=== PATIENT | male | born 1960 | race Caucasian/White ===

== ENCOUNTER 2016-12-26 11:56 | Inpatient (IN) | payer OTHER ==
[~2016-12-26] VITALS: Ht 165.1 cm; Wt 73.0 kg
[~2016-12-26 11:56] MED LIST: PRA20 PO
[2016-12-26 12:00] VITALS: BP 141/85; PULSE 79; RESP 16; O2SAT 93
[2016-12-26] MEDS ORDERED: OMEP40CA36 PO (12:06)
--- NOTE | 2016-12-26 12:08 | ED.REPORT ---
HPI-NVD Date of Service Dec 26, 2016 ED Provider: Avis Marinelli History of Present Illness: nausea, decreased oral intake, vomiting, coughing, back pain with coughing. Given tamiflu started on Friday from walk in clinic, no flu swab. has had cold symptoms for 10 days. primary care is [facility]. needs note for work. dizzy. last urination 1 hour ago Nursing Notes Stated Complaint: HEADACHE,VOMITING 3 DAYS,POSS CRACKED LEFT RIB Chief Complaint: FLU/Cold Symptoms Nursing Notes Reviewed: Yes Allergies: Coded Allergies: niacin (Verified Adverse Reaction, Intermediate, FLUSHING, 12/26/16) Scheduled Omeprazole (Omeprazole) 40 Mg Capsule.dr 40 MG PO DAILY Pravastatin (Pravachol) 20 Mg Tab 20 MG PO HS General Time Seen by MD: 12:07 Chief Complaint Nausea, Vomiting Hx Obtained From: Patient Onset Occurred: More than a week ago... 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[employer], first shift Ambulatory Status Independent Review of Systems Basic Review of Systems Eyes: Vision NL, No discharge Hematologic: No bleeding, No bruising Psychiatric: Normal thought content Physical Exam Initial Vital Signs Vital Signs (First) Date Time Temp Pulse Resp B/P Pulse Ox O2 Delivery O2 Flow Rate FiO2 12/26/16 12:00 37.2 79 16 141/85 93 Room Air Initial VS: Reviewed, Vital signs normal Head / Eyes: Atraumatic, Normocephalic, PERRL ENT: Mucous membranes moist, Conjunctiva normal, No scleral icterus Neck: Supple, Non-tender, Full range of motion Respiratory: Breath sounds normal, Clear to auscultation, No respiratory distress Cardiovascular: Regular rate & rhythm, Heart sounds normal, Intact distal pulses Back: No CVA tenderness Lymphatic: No lymphadenopathy Extremities: Vascular intact, Neuro intact, No swelling, No tenderness Skin: Warm, Dry, No cyanosis Neurologic: Alert, Oriented, Nonfocal Psychiatric: Mood/affect normal, Behavior normal, Normal thought content General/Constitutional: Awake, Alert Distress / Hydration: Positive: Distress mild Abdomen: Atraumatic, Soft, Non-tender, McBurney's non-tender, No guarding, No rebound, BS normoactive ENT: Atraumatic, Airway patent, Mucous membranes moist, Pharynx NL Rales / Rhonchi: Positive: Rhonchi coarse L Cardiovascular: Heart rate NL, Regular rhythm, Heart sounds NL, No gallop Interpretation & Diagnostics Interpretation & Diagnostics: INDICATIONS: headache, vomiting, coughing, elevated white count TECHNIQUE: After the administration of oral and intravenous contrast, 5 mm thick sections acquired from the lung apices to the symphysis. 5 mm coronal and sagittal reformats were performed, with additional 7 mm coronal MIP reformats through the lungs. For radiation dose reduction, the following was used: automated exposure control, adjustment of mA and/or kV according to patient size. COMPARISON: [facility], CT, KUB - CT ([facility] 04/15/2015, 15:54. FINDINGS: Image quality: Excellent. CHEST: Lungs and pleura: There is confluent suprahilar consolidation in the left upper lobe extending to the apex with air bronchograms. Mild dependent atelectasis is demonstrated elsewhere in the lungs. No pleural effusions or pneumothorax. Central and peripheral airways appear patent and normal in caliber. Mediastinum: Heart size is normal. No pericardial effusion. Thoracic aorta and central pulmonary arteries are normal in size. There are a few mildly enlarged left mediastinal lymph nodes including in the aortopulmonary window node measuring up to 1.2 cm in short axis and a prevascular anterior mediastinal node measuring up to 0.9 cm. Esophagus is normal in caliber. There is a small hiatal hernia. Chest wall: No axillary or supraclavicular adenopathy by size criteria. Thyroid gland demonstrates no discrete nodules. ABDOMEN: Solid organs: There is heterogeneous attenuation of the liver redemonstrated with areas of confluent hypoattenuation likely representing heterogeneous fatty infiltration. The spleen is normal in size. The gallbladder appears within normal limits without calcified gallstones. Biliary system is non dilated. Pancreas enhances normally. No adrenal nodules. Kidneys demonstrate no hydronephrosis. There are a few small bilateral nonobstructing renal stones, measuring up to 5 mm on the left and 2 mm on the right. Peritoneum and bowel: Bowel loops demonstrate normal wall thickness and caliber. There is colonic diverticulosis without acute diverticulitis. No free fluid or air. Nodes and vessels: No retroperitoneal or mesenteric adenopathy by size criteria. Aorta and inferior vena cava are normal in size. Miscellaneous: No ventral hernias. PELVIS: Genitourinary: Bladder wall thickness is normal. There is nonspecific enlargement of the prostate. Miscellaneous: No inguinal hernias or adenopathy. Bones: No suspicious bony lesions. No vertebral body compression fractures. IMPRESSION: 1. Confluent left upper lobe consolidation with air bronchograms consistent with pneumonia given clinical history. 2. Mildly enlarged left mediastinal lymph nodes are nonspecific but likely reactive. 3. Small hiatal hernia. Dictated by: Barak Ziegler M.D. on 12/26/2016 at 15:06 Approved by: Barak Ziegler M.D. on 12/26/2016 at 15:14 Lab Results Interpretation Result Diagram: 12/26/16 1235 12/26/16 1235 Test 12/26/16 12:35 12/26/16 13:45 White Blood Count 29.8th/mm3 (3.8-10.1) Red Blood Count 4.57mil/mm3 (4.40-5.80) Hemoglobin 13.4g/dL (13.8-17.2) Hematocrit 39.6% (41.0-50.0) Mean Corpuscular Volume 86.7fL (81-100) Mean Corpuscular Hemoglobin 29.3pg (27.0-35.0) Mean Corpuscular Hemoglobin Concent 33.8% (32.0-37.0) Red Cell Distribution Width 12.4% (12.3-15.4) Platelet Count 202bil/L (150-400) Neutrophils (%) (Auto) 89.1% (40-74) Lymphocytes (%) (Auto) 2.9% (14-46) Monocytes (%) (Auto) 7.4% (4-12) Eosinophils (%) (Auto) 0% (0-5) Basophils (%) (Auto) 0.1% (0-3) Sodium Level 133mEq/L (134-144) Potassium Level 4.2mEq/L (3.5-5.2) Chloride Level 93mEq/L (97-108) Carbon Dioxide Level 27mmol/L (18-29) Blood Urea Nitrogen 16mg/dL (6-24) Creatinine 1.05mg/dL (0.76-1.27) Estimat Glomerular Filtration Rate 78mL/min (>59) Glucose Level 134mg/dL (60-99) Calcium Level 9.2mg/dL (8.5-10.1) Total Bilirubin 1.2mg/dL (0.0-1.2) Aspartate Amino Transf (AST/SGOT) 18U/L (0-50) Alanine Aminotransferase (ALT/SGPT) 20U/L (0-44) Alkaline Phosphatase 101U/L (25-150) Total Protein 7.6g/dL (6.4-8.4) Albumin 4.1g/dL (3.4-5.0) Hold Joe Top Tube Received (Received) Lactic Acid Level 1.0mmol/L (0.4-2.0) Lab Results Interpretation: FINDINGS: Image quality: Excellent. CSF spaces: Basal cisterns are patent. No extra-axial fluid collections. Ventricles are normal in size and shape. Brain: No intracranial hemorrhage, mass, or mass effect. Us-white matter interface is preserved. Skull and face: Calvarium and visualized facial bones are intact, without suspicious lesions. Sinuses: Visualized sinuses demonstrate mild to moderate mucosal thickening within the ethmoid sinuses and visualized right maxillary sinus. The mastoid air cells are clear. IMPRESSION: 1. No acute intracranial abnormality. 2. Sinus mucosal disease partially visualized. X-Ray Chest Interpretation Chest Xray Interpretation: Surgical changes and devices: None. Lungs and pleura: Patchy left upper lobe opacity. No effusions or pneumothorax. Mediastinum: Mediastinal contours are normal. Heart size is normal. Bones and chest wall: No suspicious bony abnormalities. Soft tissues appear unremarkable. IMPRESSION: Patchy left upper lobe opacity suggestive of pneumonia. Recommend interval imaging followup to document resolution after appropriate therapy to exclude presence of underlying mass lesion. Re-Eval/Medical Decision Med Decision/Clinical Course 56 year male with upper respiratory illness not responding to tamilflu. has had vomiting with decreased oral intake. No sign of appy, food poisoning or pancreatitis. Continues to vomit in the setting of multiple doses of antiemitics. Would benefit from admission and IV antibiotics and fluids Discharge & Departure Impression: Primary Impression: Community acquired pneumonia Disposition: ADMITTED TO HOSPITAL Referrals: Rony Rosas MD (PCP) EDSupervising Provider for APC: Erlin Mckoy MD copies to: Rony Rosas MD, Sue ARNP Dec 26, 2016 12:08
[2016-12-26] MEDS ORDERED: 0.9% Sodium Chloride 1,000 ML IV ONE ×2 (12:20→13:15)
[2016-12-26] MEDS ORDERED: Ondansetron 2 mg/mL 2 mL Inj IVPUSH ONE (12:20)
[2016-12-26 13:00] LABS: BASOPHILS % (AUTO) 0.1 % (0-3); EOSINOPHILS % (AUTO) 0 % (0-5); MONOCYTES % (AUTO) 7.4 % (4-12); Mean Corpuscular Hemoglobin 29.3 pg (27.0-35.0); Mean Corpuscular Volume 86.7 fL (81-100); NEUTROPHILS % (AUTO) 89.1 % (40-74); Platelet Count 202 bil/L (150-400)
[2016-12-26] MEDS ORDERED: HYDROmorphone 0.5 mg/0.5 mL iSecure Syringe IVPUSH ONE (13:15)
--- NOTE | 2016-12-26 13:53 | DRSVH ---
PROCEDURE: X-RAY CHEST, TWO VIEWS ([id number]) INDICATIONS: cough TECHNIQUE: 2 views of the chest were acquired. COMPARISON: [facility], , CHEST 1VW (PORTABLE), 01/11/2013, 2:19. FINDINGS: Surgical changes and devices: None. Lungs and pleura: Patchy left upper lobe opacity. No effusions or pneumothorax. Mediastinum: Mediastinal contours are normal. Heart size is normal. Bones and chest wall: No suspicious bony abnormalities. Soft tissues appear unremarkable. IMPRESSION: Patchy left upper lobe opacity suggestive of pneumonia. Recommend interval imaging follow up to document resolution after appropriate therapy to exclude presence of underlying mass lesion. Dictated by: Nemo Carrillo M.D. on 12/26/2016 at 13:51 Approved by: Nemo Carrillo M.D. on 12/26/2016 at 13:51
[2016-12-26] MEDS ORDERED: cefTRIAXone Inj 2,000 MG in Dextrose 5% Minibag Plus 50 ML IV ONE (14:20)
[2016-12-26] MEDS ORDERED: Azithromycin Inj 500 MG in Dextrose 5% w/Vial Mate 250 ML IV ONE (14:20)
[2016-12-26 14:46] VITALS: BP 103/58; PULSE 65; RESP 18; O2SAT 99
--- NOTE | 2016-12-26 15:03 | DRSVH ---
PROCEDURE: CT BRAIN WITHOUT CONTRAST ([id number]) INDICATIONS: headache, vomiting TECHNIQUE: Noncontrast 4.5 mm thick angled axial sections acquired from the foramen magnum to the vertex, with c oronal reformats. COMPARISON: None. FINDINGS: Image quality: Excellent. CSF spaces: Basal cisterns are patent. No extra-axial fluid collections. Ventricles are normal in size and shape. Brain: No intracranial hemorrhage, mass, or mass effect. Us-white matter interface is preserved. Skull and face: Calvarium and visualized facial bones are intact, without suspicious lesions. Sinuses: Visualized sinuses demonstrate mild to moderate mucosal thickening within the ethmoid sinus es and visualized right maxillary sinus. The mastoid air cells are clear. IMPRESSION: 1. No acute intracranial abnormality. 2. Sinus mucosal disease partially visualized. Dictated by: Barak Ziegler M.D. on 12/26/2016 at 14:59 Approved by: Barak Ziegler M.D. on 12/26/2016 at 15:01
--- NOTE | 2016-12-26 15:16 | DRSVH ---
PROCEDURE: CT CHEST, ABDOMEN AND PELVIS [facility] CONTRAST ([id number]) INDICATIONS: headache, vomiting, coughing, elevated white count TECHNIQUE: After the administration of oral and intravenous contrast, 5 mm thick sections acquired from the lung apices to the symphysis. 5 mm coronal and sagittal reformats were performed, with additional 7 mm c oronal MIP reformats through the lungs. For radiation dose reduction, the following was used: autom ated exposure control, adjustment of mA and/or kV according to patient size. COMPARISON: [facility], CT, KUB - CT ([facility]), 04/15/2015, 15:54. FINDINGS: Image quality: Excellent. CHEST: Lungs and pleura: There is confluent suprahilar consolidation in the left upper lobe extending to th e apex with air bronchograms. Mild dependent atelectasis is demonstrated elsewhere in the lungs. No pleural effusions or pneumothorax. Central and peripheral airways appear patent and normal in calib er. Mediastinum: Heart size is normal. No pericardial effusion. Thoracic aorta and central pulmonary a rteries are normal in size. There are a few mildly enlarged left mediastinal lymph nodes including i n the aortopulmonary window node measuring up to 1.2 cm in short axis and a prevascular anterior medi astinal node measuring up to 0.9 cm. Esophagus is normal in caliber. There is a small hiatal hernia. Chest wall: No axillary or supraclavicular adenopathy by size criteria. Thyroid gland demonstrates no discrete nodules. ABDOMEN: Solid organs: There is heterogeneous attenuation of the liver redemonstrated with areas of confluent hypoattenuation likely representing heterogeneous fatty infiltration. The spleen is normal in size. The gallbladder appears within normal limits without calcified gallstones. Biliary system is non di lated. Pancreas enhances normally. No adrenal nodules. Kidneys demonstrate no hydronephrosis. The re are a few small bilateral nonobstructing renal stones, measuring up to 5 mm on the left and 2 mm o n the right. Peritoneum and bowel: Bowel loops demonstrate normal wall thickness and caliber. There is colonic d iverticulosis without acute diverticulitis. No free fluid or air. Nodes and vessels: No retroperitoneal or mesenteric adenopathy by size criteria. Aorta and inferior vena cava are normal in size. Miscellaneous: No ventral hernias. PELVIS: Genitourinary: Bladder wall thickness is normal. There is nonspecific enlargement of the prostate. Miscellaneous: No inguinal hernias or adenopathy. Bones: No suspicious bony lesions. No vertebral body compression fractures. IMPRESSION: 1. Confluent left upper lobe consolidation with air bronchograms consistent with pneumonia given cli nical history. 2. Mildly enlarged left mediastinal lymph nodes are nonspecific but likely reactive. 3. Small hiatal hernia. Dictated by: Barak Ziegler M.D. on 12/26/2016 at 15:06 Approved by: Barak Ziegler M.D. on 12/26/2016 at 15:14
[2016-12-26] MEDS ORDERED: Ondansetron 2 mg/mL 2 mL Inj ONE (16:32)
[2016-12-26 17:11] VITALS: BP 110/69; PULSE 78; RESP 17; O2SAT 98
--- NOTE | 2016-12-26 17:26 | PCM.HPMED ---
Subjective Date of Service Dec 26, 2016 Primary Provider: Admitting Physician: Paul Cazares MD Primary Care Physician: Ricardo Amato MD Attending Physician: Paul Cazares MD Chief Complaint: Cough, nausea, vomiting, generalized weakness History of Present Illness: This is a 56 years old, no significant past medical history except for hyperlipidemia who presented to hospital complaining about nausea, vomiting approximately 2-3 days. Patient stated he has been having flulike symptom with the course of 3 weeks or so, on and off, with fever chills cough or sputum production. He stated his symptoms have been getting worse over the past 2 days l, he went to an urgent care and was prescribed Tamiflu. He stated his nausea and vomiting begun after he started taking the Tamiflu. Vomiting some gastric content, no mucus, no blood. Patient denied abdominal pain, no diarrhea , no chest pain, no shortness of breath. ER workup shows a leukocytosis of 29,000 chest x-ray showed left lobe pneumonia. CT scan showed enlarged mediastinal lymph nodes, likely reactive Review of Systems: Comprehensive review of systems 12 points is negative except for what is described above in history of present illness Allergies Coded Allergies: niacin (Verified Adverse Reaction, Intermediate, FLUSHING, 12/26/16) Home Medications Omeprazole (Omeprazole) 40 Mg Capsule.dr 40 MG PO DAILY Pravastatin (Pravachol) 20 Mg Tab 20 MG PO HS PMH Hyperlipidemia Surgical History Lithotripsy Ventral hernia repair Family History Father dies of metastasis cancer of unknown origin Social History Hx Alcohol Use: No Hx Substance Use: No Hx Tobacco Use: No Smoking Status: Never Smoker Living Arrangement: with Family Exam Vital Signs Vital Sign - Last Date Time Temp Pulse Resp B/P Pulse Ox O2 Delivery O2 Flow Rate FiO2 12/26/16 17:11 36.7 78 17 110/69 98 Room Air Exam General/constitutional : He is appearing male, sitting in a stretcher comfortably in no acute distress. HEENT: Head is normocephalic and atraumatic, sclerae anicteric, PERRL Mouth: Moist oral mucosa, no oral thrush Neck: No cervical lymphadenopathy, no JVD, trachea is midline. Chest: No chest wall tenderness, no deformity, normal respiratory effort Lungs: Scattered crackles are left lung potter, no wheezing. Heart: S1, S2 regular rate and, no gallop, no murmur Abdomen: Soft, nontender, nondistended, no palpable mass. Extremities: No edema, no cyanosis, no calf tenderness. Neuro: cn : Grossly non focal Skin: No rash, no ulcers Lab and Diagnostics Result Diagram: 12/26/16 1235 12/26/16 1235 X-Rays, CTs and MRIs Chest x-ray reviewed : Patchy left upper lobe opacity suggestive of pneumonia. Recommend interval imaging followup to document resolution after appropriate therapy to exclude presence of underlying mass lesion CT scan reviewed : 1. No acute intracranial abnormality. 2. Sinus mucosal disease partially visualized. Abdominal CT scan reviewed; 1. Confluent left upper lobe consolidation with air bronchograms consistent with pneumonia given clinical history. 2. Mildly enlarged left mediastinal lymph nodes are nonspecific but likely reactive. 3. Small hiatal hernia. Assessment & Plan 1. Community-acquired pneumonia/Left lobe pneumonia 2. Dehydration : Due to nausea and vomiting 3. Hyperlipidemia : on Statin 4. Mediastinal lymphadenopathy : Seen on CT scan, likely reactive. Patient may need follow-up CT scan 3-4 weeks after discharge . Admit inpatient . Rocephin and Zithromax Blood culture. swab for influenza screen IV Hydration with NS @ 100 ml/hr . Zofran and raglan PRN for nausea and vomiting cbc, bmp in am . Hospital of 2-3 days is anticipated and recovery is expected Resuscitation Status: CPR: Attempt Resuscitation Time spent 55 minutes Paul Cazares MD Dec 26, 2016 17:26
[2016-12-26 17:53] LABS: Magnesium 1.9 mg/dL (1.6-2.6)
[2016-12-26] MEDS: 0.9% Sodium Chloride 1,000 ML IV SCH (18:01)
--- NOTE | 2016-12-26 18:04 | NUR ---
Admit Patient arrived to floor at 1745 from ER. Patient walked from stretcher to bed and patient's gait was steady. Patient denies any pain, SOB, chest pain,nausea at this time. Patient said his headache is starting to come back but "is no where near what it was" he says. Will call [facility]ito in [place] to get current list of patients medications. Patient oriented to room and call light and instructed to call the first time he needs to get up. Patient's family at bedside. Addendum: 12/26/16 at 1834 by TATIANA FARRAR Specimen for PCR sent to lab. Addendum: 12/26/16 at 1856 by ARTIS QUINONES RN ADMIT I was with the student RN during the admit process. Patient denies pain/nausea/SOB at this time. IVF started. Specimen for MRSA and PCR was sent to the lab. Oriented to room and call light. (Please refer to admit grid for assessments).
[2016-12-26 18:10] VITALS: BP 108/71; PULSE 57; RESP 18; O2SAT 96
[2016-12-26] MEDS ORDERED: HYDR-4003 PO (18:17)
[2016-12-26] MEDS ORDERED: TAM75UDCAP PO (18:17)
[2016-12-26] MEDS ORDERED: FENO48TA4 PO (19:03)
[2016-12-26] MEDS ORDERED: MetoCLOpramide 5 mg/mL 2 mL Inj IVPUSH PRN (19:10)
[2016-12-26 20:34] VITALS: BP 106/68; PULSE 60; RESP 20; O2SAT 96
[2016-12-26] MEDS: Heparin 5,000 Unit/mL Inj SUBQ SCH (22:17)
[2016-12-27 00:20] VITALS: BP 99/58; PULSE 55; RESP 20; O2SAT 97
[2016-12-27] MEDS: 0.9% Sodium Chloride 1,000 ML IV SCH ×2 (03:35→18:02)
[2016-12-27 05:29] VITALS: BP 104/68; PULSE 57; RESP 20; O2SAT 97
[2016-12-27 06:20] LABS: BASOPHILS % (AUTO) 0.1 % (0-3); EOSINOPHILS % (AUTO) 0.4 % (0-5); MONOCYTES % (AUTO) 9.5 % (4-12); Mean Corpuscular Hemoglobin 29.2 pg (27.0-35.0); Mean Corpuscular Volume 87.9 fL (81-100); Platelet Count 195 bil/L (150-400)
--- NOTE | 2016-12-27 06:27 | NUR ---
Respiratory Has denied SOB over night with reports of non productive cough. Currently resting in bed without any complaints.
[2016-12-27 08:10] VITALS: BP 116/71; PULSE 50; RESP 16; O2SAT 97
[2016-12-27] MEDS: Azithromycin Inj 500 MG in Dextrose 5% w/Vial Mate 250 ML IV SCH (08:26)
[2016-12-27] MEDS ORDERED: cefTRIAXone Inj 1,000 MG in Dextrose 5% Minibag Plus 50 ML IV SCH (08:30)
[2016-12-27] MEDS: Heparin 5,000 Unit/mL Inj SUBQ SCH (08:30)
--- NOTE | 2016-12-27 08:50 | NUR ---
Headaches/pain Afebrile. c/o headaches 02/10. PRN tylenol orders received from doctor.
[2016-12-27] MEDS ORDERED: HYDROmorphone 0.5 mg/0.5 mL iSecure Syringe IVPUSH PRN (10:05)
--- NOTE | 2016-12-27 10:13 | PCM.PNMED ---
Subjective Date of Service Dec 27, 2016 Subjective Patient is still having headache he notes that the pain medication and get down the ER are taken away for approximately 8 hours. He had 1 episode of vomiting yesterday but that has improved. Exam Vital Signs Vital Sign - Last Date Time Temp Pulse Resp B/P Pulse Ox O2 Delivery O2 Flow Rate FiO2 12/27/16 08:10 36.6 50 16 116/71 97 Room Air Intake and Output 12/26/16 12/26/16 12/27/16 Cumulative From/Thru 14:59 22:59 06:59 12/26/16 12:00 - 12/27/16 06:43 Intake Total 2000 ml 1698 ml 3698 ml Output Total 1250 ml 1250 ml Balance 2000 ml 448 ml 2448 ml Intake Oral 420 ml 420 ml IV Total 2000 ml 1278 ml 3278 ml Output Urine Total 1250 ml 1250 ml Exam Constitutional: Middle-aged male who looks somewhat fatigued Head: Normocephalic atraumatic Eyes: PERRLA DC EOMI Mouth: No lesions Chest: Clear to auscultation Cor: Regular rate and rhythm S1-S2 without murmur Abdomen: Soft nontender bowel sounds present Extremities: No pedal edema Skin: No rashes Psych: Mood and affect are appropriate Neuro: Alert and oriented 3, motor and sensory are intact bilaterally IVs and Medications Medications Reviewed: Medications were reviewed in detail Lab and Diagnostics Laboratory Tests 72 Hours Test 12/26/16 12:35 12/26/16 13:45 12/27/16 05:50 White Blood Count 29.8th/mm3 (3.8-10.1) 18.2th/mm3 (3.8-10.1) Red Blood Count 4.57mil/mm3 (4.40-5.80) 3.87mil/mm3 (4.40-5.80) Hemoglobin 13.4g/dL (13.8-17.2) 11.3g/dL (13.8-17.2) Hematocrit 39.6% (41.0-50.0) 34.0% (41.0-50.0) Mean Corpuscular Volume 86.7fL (81-100) 87.9fL (81-100) Mean Corpuscular Hemoglobin 29.3pg (27.0-35.0) 29.2pg (27.0-35.0) Mean Corpuscular Hemoglobin Concent 33.8% (32.0-37.0) 33.2% (32.0-37.0) Red Cell Distribution Width 12.4% (12.3-15.4) 12.5% (12.3-15.4) Platelet Count 202bil/L (150-400) 195bil/L (150-400) Neutrophils (%) (Auto) 89.1% (40-74) 83.0% (40-74) Lymphocytes (%) (Auto) 2.9% (14-46) 6.7% (14-46) Monocytes (%) (Auto) 7.4% (4-12) 9.5% (4-12) Eosinophils (%) (Auto) 0% (0-5) 0.4% (0-5) Basophils (%) (Auto) 0.1% (0-3) 0.1% (0-3) Sodium Level 133mEq/L (134-144) 142mEq/L (134-144) Potassium Level 4.2mEq/L (3.5-5.2) 4.2mEq/L (3.5-5.2) Chloride Level 93mEq/L (97-108) 104mEq/L (97-108) Carbon Dioxide Level 27mmol/L (18-29) 24mmol/L (18-29) Blood Urea Nitrogen 16mg/dL (6-24) 15mg/dL (6-24) Creatinine 1.05mg/dL (0.76-1.27) 0.88mg/dL (0.76-1.27) Estimat Glomerular Filtration Rate 78mL/min (>59) 95mL/min (>59) Glucose Level 134mg/dL (60-99) 102mg/dL (60-99) Hemoglobin A1c 5.6% (4.8-5.6) Calcium Level 9.2mg/dL (8.5-10.1) 8.3mg/dL (8.5-10.1) Magnesium Level 1.9mg/dL (1.6-2.6) Total Bilirubin 1.2mg/dL (0.0-1.2) 0.5mg/dL (0.0-1.2) Aspartate Amino Transf (AST/SGOT) 18U/L (0-50) 14U/L (0-50) Alanine Aminotransferase (ALT/SGPT) 20U/L (0-44) 16U/L (0-44) Alkaline Phosphatase 101U/L (25-150) 83U/L (25-150) Total Protein 7.6g/dL (6.4-8.4) 5.5g/dL (6.4-8.4) Albumin 4.1g/dL (3.4-5.0) 3.3g/dL (3.4-5.0) Procalcitonin 0.48ng/mL (0.00-0.08) 0.44ng/mL (0.00-0.08) Hold Joe Top Tube Received (Received) Lactic Acid Level 1.0mmol/L (0.4-2.0) Result Diagram: 12/27/16 0550 12/27/16 0550 X-Rays, CTs and MRIs Chest x-ray reviewed : Patchy left upper lobe opacity suggestive of pneumonia. Recommend interval imaging followup to document resolution after appropriate therapy to exclude presence of underlying mass lesion CT scan reviewed : 1. No acute intracranial abnormality. 2. Sinus mucosal disease partially visualized. Abdominal CT scan reviewed; 1. Confluent left upper lobe consolidation with air bronchograms consistent with pneumonia given clinical history. 2. Mildly enlarged left mediastinal lymph nodes are nonspecific but likely reactive. 3. Small hiatal hernia. Assessment & Plan 1. Community-acquired pneumonia/Left upper lobe pneumonia , acute, present on admission Ahead and change Rocephin to Zosyn as possibly has an aspiration pneumonia after viral illness. We will also check urine pneumococcus and legionella antigen. PCR respiratory is negative. Sputum studies are also pending 2. Dehydration : Due to nausea and vomiting , acute, present on admission Give IV fluid hydration Also check a troponin to make sure that was not contributing to nausea vomiting 3. Hyperlipidemia : on Statin 4. Mediastinal lymphadenopathy : Seen on CT scan, likely reactive. Patient may need follow-up CT scan 3-4 weeks after discharge . 5. DVT prophylaxis We use subcutaneous Lovenox 6. CODE STATUS Full code Pain Evaluation: Adequate Pain Control VTE Prophylaxis: Sub-Q Enoxaparin Resuscitation Status: CPR: Attempt Resuscitation Time spent 30 minutes Jo Gar MD Dec 27, 2016 10:13
[2016-12-27 10:23] LABS: BASOPHILS % (AUTO) 0.1 % (0-3); EOSINOPHILS % (AUTO) 0.2 % (0-5); MONOCYTES % (AUTO) 6.9 % (4-12); Mean Corpuscular Hemoglobin 29.8 pg (27.0-35.0); NEUTROPHILS % (AUTO) 86.5 % (40-74); Platelet Count 200 bil/L (150-400)
--- NOTE | 2016-12-27 10:43 | NUR ---
Sputum sample Doctor aware r/t sputum sample collected and sent to lab.
[2016-12-27] MEDS: Piperacillin-Tazo 3.375 Gm Inj 3.375 GM in Dextrose 5% Minibag Plus 50 ML IV SCH ×2 (10:52→17:49)
[2016-12-27 12:43] VITALS: BP 107/64; PULSE 50; RESP 16; O2SAT 96
--- NOTE | 2016-12-27 15:48 | NUR ---
Mentation patient is alert and oriented X3. Able to make needs known. stable vital signs. stable mood. c/o headaches 02/10 once this shift. PRN Tylenol given with effective results. family at bed side. Urine sample and sputum sample out to lab this AM. Received IV ABO as ordered with no side effects. no c/o GI upset, nausea or vomiting this shift so far. no sign and symptoms of respiratory distress noted. no c/o shortness of breath or trouble breathing noted. stable oxygenation on room air. call light with in reach for safety. stable mood. continue to monitor for lung sounds, vital signs, pain, side effect of ABO use, and safety.
--- NOTE | 2016-12-27 16:09 | NUR ---
Systolic BP BP 94/56, pulse 53, Temp 98.1, Oxygen 100%. Notified doctor r/t low pulse and low systolic BP. No new orders. encouraged hydration.
[2016-12-27 16:30] VITALS: BP 94/56; PULSE 53; RESP 15; O2SAT 100
--- NOTE | 2016-12-27 18:15 | NUR ---
Off Precautions per Doctor orders off droplet precautions r/t negative viral screen.. C/o forehead pain. PRN Tylenol given with effective results.
[2016-12-27 21:40] VITALS: BP 105/70; PULSE 55; RESP 16; O2SAT 95
[2016-12-28] MEDS: Piperacillin-Tazo 3.375 Gm Inj 3.375 GM in Dextrose 5% Minibag Plus 50 ML IV SCH ×3 (01:49→18:24)
[2016-12-28] MEDS: 0.9% Sodium Chloride 1,000 ML IV SCH ×5 (04:31→22:43)
--- NOTE | 2016-12-28 06:17 | NUR ---
PT has slept well tonight. His stayed at bedside. He denies any pain, nausea or vomiting. Voiding in BR. States that the pleuritic pain he presented with is resolved. JACKSON and LL lungs are slightly decreased, otherwise his assessment is benign. Afebrile. Receiving IV fluids and zosyn. Will CTM progress.
[2016-12-28 07:36] LABS: BASOPHILS % (AUTO) 0.3 % (0-3); EOSINOPHILS % (AUTO) 1.6 % (0-5); MONOCYTES % (AUTO) 9.1 % (4-12); Mean Corpuscular Hemoglobin 28.8 pg (27.0-35.0); Mean Corpuscular Volume 84.7 fL (81-100); NEUTROPHILS % (AUTO) 71.9 % (40-74); Platelet Count 252 bil/L (150-400)
[2016-12-28] MEDS: Azithromycin Inj 500 MG in Dextrose 5% w/Vial Mate 250 ML IV SCH (08:02)
--- NOTE | 2016-12-28 08:28 | PCM.PNMED ---
Subjective Date of Service Dec 28, 2016 Subjective Patient notes he is feeling better today. He has had no headaches. He has had no nausea or vomiting. This morning he did have a formed bowel movement but soon after words he had a second one with loose stool. He denies any abdominal pain or cramping. Exam Vital Signs Vital Sign - Last Date Time Temp Pulse Resp B/P Pulse Ox O2 Delivery O2 Flow Rate FiO2 12/27/16 21:40 36.9 55 16 105/70 95 Room Air Intake and Output 12/27/16 12/27/16 12/28/16 Cumulative From/Thru 14:59 22:59 06:59 12/26/16 12:00 - 12/28/16 05:41 Intake Total 400 ml 1328 ml 5426 ml Output Total 400 ml 1650 ml Balance 0 ml 1328 ml 3776 ml Intake Oral 400 ml 300 ml 1120 ml IV Total 1028 ml 4306 ml Output Urine Total 400 ml 1650 ml # Voids 2 2 Exam Constitutional: Middle-aged male in no acute distress Head: Normocephalic atraumatic Chest: Clear to auscultation Cor: Regular rate and rhythm S1-S2 without murmur Abdomen: Soft nontender bowel sounds present Extremities: No pedal edema Psych: Mood and affect appropriate Neuro: Alert and oriented 3, motor strength intact bilaterally Lab and Diagnostics Result Diagram: 12/28/16 0645 12/27/16 1015 X-Rays, CTs and MRIs Chest x-ray reviewed : Patchy left upper lobe opacity suggestive of pneumonia. Recommend interval imaging followup to document resolution after appropriate therapy to exclude presence of underlying mass lesion CT scan reviewed : 1. No acute intracranial abnormality. 2. Sinus mucosal disease partially visualized. Abdominal CT scan reviewed; 1. Confluent left upper lobe consolidation with air bronchograms consistent with pneumonia given clinical history. 2. Mildly enlarged left mediastinal lymph nodes are nonspecific but likely reactive. 3. Small hiatal hernia. Assessment & Plan 1. Community-acquired pneumonia/Left upper lobe pneumonia , acute, present on admission Ahead and change Rocephin to Zosyn as possibly has an aspiration pneumonia after viral illness. We will also check urine pneumococcus and legionella antigen. PCR respiratory is negative. Sputum studies are also pending, preliminary reveals WBCs present but no predominant abnormal organs Continue with IV Zosyn and IV azithromycin Initiate probiotics before meals and at bedtime 2. Dehydration : Due to nausea and vomiting , acute, present on admission Give IV fluid hydration Also check a troponin to make sure that was not contributing to nausea vomiting. And this did come back negative. 3. Hyperlipidemia : on Statin 4. Mediastinal lymphadenopathy : Seen on CT scan, likely reactive. Patient may need follow-up CT scan 3-4 weeks after discharge . 5. DVT prophylaxis We use subcutaneous Lovenox 6. CODE STATUS Full code VTE Prophylaxis: Sub-Q Enoxaparin Resuscitation Status: CPR: Attempt Resuscitation Time spent 30 minutes Jo Gar MD Dec 28, 2016 08:28
[2016-12-28 13:59] VITALS: BP 129/86; PULSE 61; RESP 18; O2SAT 95
--- NOTE | 2016-12-28 14:58 | NUR ---
RESP Denies SOB, lung sounds slightly decreased. O2 sats stable on RA. Afebrile. Continues to receive IV ABX. Had 2 episodes of loose stool this am. No complaints of abdominal pain. Received order to send sample for C.diff testing, patient has not had another BM since early am. Independent in room, gait steady. Care continues.
[2016-12-28 21:10] VITALS: BP 144/92; PULSE 55; RESP 16; O2SAT 98
[2016-12-29] MEDS: Piperacillin-Tazo 3.375 Gm Inj 3.375 GM in Dextrose 5% Minibag Plus 50 ML IV SCH (02:24)
--- NOTE | 2016-12-29 05:28 | NUR ---
One small loose stool on nights Sample sent to Lab to check for c-diff. No C/o nausea, abdominal or pleuritic pain. Resting quietly overnight.
[2016-12-29 05:55] VITALS: BP 120/74; PULSE 64; RESP 16; O2SAT 98
[2016-12-29 06:24] LABS: BASOPHILS % (AUTO) 0.6 % (0-3); EOSINOPHILS % (AUTO) 3.1 % (0-5); Mean Corpuscular Volume 86.9 fL (81-100); NEUTROPHILS % (AUTO) 65.1 % (40-74); Platelet Count 296 bil/L (150-400)
[2016-12-29] MEDS: Azithromycin Inj 500 MG in Dextrose 5% w/Vial Mate 250 ML IV SCH (08:28)
--- NOTE | 2016-12-29 09:28 | PCM.DIMED ---
Discharge Instructions Date of Service Dec 29, 2016 Dates of Hospitalization Dec 26, 2016 at 16:57 Discharge Diagnosis Discharge Diagnosis Acute pneumonia,Nausea,vomiting Diet No restrictions Activity Other (progress as tolerated) Patient Instructions Follow-up Provider: Ricardo Amato MD Follow-up with PCP in: 1 week Jo Gar MD Dec 29, 2016 09:28
[2016-12-29] MEDS ORDERED: AZIT500T5 PO (09:31)
[2016-12-29] MEDS ORDERED: AMOX-366 PO (09:31)
--- NOTE | 2016-12-29 10:09 | NUR ---
Social Work- Brief Note/Readiness for Discharge Data: EMR reviewed. Pt was admitted 12/26/16 for pneumonia and vomiting per H&P. Pt's insurance is [employer]. PCP is Ricardo Amato MD. SW spoke with pt and at bedside to discuss discharge planning, SW role explained. Pt lives with in a house in [place], where he remains independent with his ADLs. Pt does not use any DME and drives. No HH or SNF history. SW spoke with family about DPOA, encouraged completion of paperwork. Pt to discharge home with to transport via POV. No anticipated discharge needs. SW will continue to follow if needs arise. Assessment: [place]. Plan: Pt to discharge home when medically stable, to transport via POV. No anticipated discharge needs. SW will continue to follow if needs arise. BETTY Crews
--- NOTE | 2016-12-29 10:13 | NUR ---
Social Work- Discharge Data: EMR reviewed. Pt on day 3 of hospitalization for pneumonia and vomiting per H&P. Pt to discharge home today. Pt to discharge home with to transport via POV. No discharge needs. Assessment: [place]. Plan: Pt to discharge home today, to transport via POV. No discharge needs. Aundrea Beyer MSW
--- NOTE | 2016-12-29 10:35 | NUR ---
DISCHARGE Patient is feeling better today. No coughing or SOB noted. Reviewed discharge paperwork with patient and at bedside, including new Rx for antibiotics. Patient got dressed independently. Took all of belongings with patient. Escorted out to front lobby and left with .
--- NOTE | 2017-01-10 19:07 | PCM.DC.MED ---
Discharge Summary Date of Service Jan 10, 2017 Dates of Hospitalization Date of Hospital Admission Dec 26, 2016 at 16:57 Date of Discharge: Dec 29, 2016 Providers: Admitting Physician: Paul Cazares MD Primary Care Physician: Ricardo Amato MD Attending Physician: Paul Cazares MD Diagnosis at Time of Discharge Diagnosis at Time of Discharge Acute pneumonia,Nausea,vomiting Procedures XRay, CTs & MRIs Chest x-ray reviewed : Patchy left upper lobe opacity suggestive of pneumonia. Recommend interval imaging followup to document resolution after appropriate therapy to exclude presence of underlying mass lesion CT scan reviewed : 1. No acute intracranial abnormality. 2. Sinus mucosal disease partially visualized. Abdominal CT scan reviewed; 1. Confluent left upper lobe consolidation with air bronchograms consistent with pneumonia given clinical history. 2. Mildly enlarged left mediastinal lymph nodes are nonspecific but likely reactive. 3. Small hiatal hernia. Brief History This is a 56 years old, no significant past medical history except for hyperlipidemia who presented to hospital complaining about nausea, vomiting approximately 2-3 days. Patient stated he has been having flulike symptom with the course of 3 weeks or so, on and off, with fever chills cough or sputum production. He stated his symptoms have been getting worse over the past 2 days l, he went to an urgent care and was prescribed Tamiflu. He stated his nausea and vomiting begun after he started taking the Tamiflu. Vomiting some gastric content, no mucus, no blood. Patient denied abdominal pain, no diarrhea , no chest pain, no shortness of breath. ER workup shows a leukocytosis of 29,000 chest x-ray showed left lobe pneumonia. CT scan showed enlarged mediastinal lymph nodes, likely reactive Hospital Course 1. Community-acquired pneumonia/Left upper lobe pneumonia , acute, present on admission Ahead and change Rocephin to Zosyn as possibly has an aspiration pneumonia after viral illness. We will also check urine pneumococcus and legionella antigen. PCR respiratory is negative. Sputum studies are also pending, preliminary reveals WBCs present but no predominant abnormal organisms Continue with IV Zosyn and IV azithromycin Initiate probiotics before meals and at bedtime Patient was much better the day of discharge and was discharged home on oral antibiotics Augmentin and azithromycin by mouth to complete a complete antibiotic course. 2. Dehydration : Due to nausea and vomiting , acute, present on admission Give IV fluid hydration Also check a troponin to make sure that was not contributing to nausea vomiting. And this did come back negative. 3. Hyperlipidemia : on Statin 4. Mediastinal lymphadenopathy : Seen on CT scan, likely reactive. Patient may need follow-up CT scan 3-4 weeks after discharge . 5. DVT prophylaxis We use subcutaneous Lovenox 6. CODE STATUS Full code Exam Test 12/26/16 12:35 12/26/16 13:45 12/27/16 10:15 12/27/16 12:00 Hemoglobin A1c 5.6% (4.8-5.6) Magnesium Level 1.9mg/dL (1.6-2.6) Hold Joe Top Tube Received (Received) Lactic Acid Level 1.0mmol/L (0.4-2.0) Troponin T < 0.010ug/L (0.0-0.011) Urine Legionella pneumophilia Ag Negative (Negative) Test 12/29/16 06:06 White Blood Count 7.1th/mm3 (3.8-10.1) Red Blood Count 4.04mil/mm3 (4.40-5.80) Hemoglobin 11.7g/dL (13.8-17.2) Hematocrit 35.1% (41.0-50.0) Mean Corpuscular Volume 86.9fL (81-100) Mean Corpuscular Hemoglobin 29.0pg (27.0-35.0) Mean Corpuscular Hemoglobin Concent 33.3% (32.0-37.0) Red Cell Distribution Width 12.7% (12.3-15.4) Platelet Count 296bil/L (150-400) Neutrophils (%) (Auto) 65.1% (40-74) Lymphocytes (%) (Auto) 21.7% (14-46) Monocytes (%) (Auto) 8.0% (4-12) Eosinophils (%) (Auto) 3.1% (0-5) Basophils (%) (Auto) 0.6% (0-3) Sodium Level 142mEq/L (134-144) Potassium Level 4.0mEq/L (3.5-5.2) Chloride Level 105mEq/L (97-108) Carbon Dioxide Level 24mmol/L (18-29) Blood Urea Nitrogen 16mg/dL (6-24) Creatinine 0.89mg/dL (0.76-1.27) Estimat Glomerular Filtration Rate 94mL/min (>59) Glucose Level 101mg/dL (60-99) Calcium Level 8.5mg/dL (8.5-10.1) Total Bilirubin 0.3mg/dL (0.0-1.2) Aspartate Amino Transf (AST/SGOT) 37U/L (0-50) Alanine Aminotransferase (ALT/SGPT) 49U/L (0-44) Alkaline Phosphatase 118U/L (25-150) Total Protein 5.8g/dL (6.4-8.4) Albumin 3.4g/dL (3.4-5.0) Procalcitonin 0.21ng/mL (0.00-0.08) Discharge Medications Discharge Medications Amoxicillin/Clav K 875-125 mg (Augmentin 875-125 mg) 1 Each Tablet 1 TABLET PO BID Prescribed by: JO GAR MD Azithromycin (Azithromycin) 500 Mg Tablet 500 MG PO DAILY Prescribed by: JO GAR MD Fenofibrate Nanocrystallized (Fenofibrate) 48 Mg Tablet 48 MG PO QPM (Reported) Omeprazole (Omeprazole) 40 Mg Capsule.dr 40 MG PO QPM (Reported) Pravastatin (Pravachol) 20 Mg Tab 20 MG PO HS (Reported) As needed Hydrocodone-Acetaminophen 5-325 mg (Hydrocodone-Acetaminophen 5-325 mg) 1 Each Tablet 1 TABLET PO Q4H PRN PRN For Pain (Reported) Followup Plan Discharge Diet: No restrictions Discharge Activity: Other (progress as tolerated) Follow-up Provider: Ricardo Amato MD Follow-up with PCP in: 1 week Time spent 60 minutes Jo Gar MD Jan 10, 2017 19:07
== END 2016-12-29 10:29 | disposition home or self-care (01) | DRG 195 ==
LOC: SED 11:56 → OSC 16:57
PROVIDERS: ADMIT Internal Medicine; ATTEND Internal Medicine
DX: J18.9 Pneumonia, unspecified organism (principal); E78.5 Hyperlipidemia, unspecified; E86.0 Dehydration; R59.1 Generalized enlarged lymph nodes